=== PATIENT | female | born 1980 | race African-American/Black ===

== ENCOUNTER 2020-07-10 18:45 | Emergency (ER) | payer BC ==
[~2020-07-10] VITALS: Ht 188 cm; Wt 109.0 kg
[2020-07-10] MEDS ORDERED: IBUP-1060 PO (19:27)
[2020-07-10] MEDS ORDERED: OXYC-325 PO (19:28)
[2020-07-10] MEDS ORDERED: KETOROLAC 15 MG/ML VIAL. IVP ONE (19:45)
[2020-07-10] MEDS ORDERED: ONDANSETRON PF 4 MG/2 ML VIAL. IVP ONE (19:45)
[2020-07-10] MEDS ORDERED: IV NORMAL SALINE 1000ML BAG 1,000 ML IV ONE (19:45)
[2020-07-10 20:05] LABS: BASO # 0.1 x10^3/uL (0.0-0.2); BASO % 1 % (0-3); EOS # 0.2 x10^3/uL (0.0-0.7); EOS % 2 % (0-3); HEMATOCRIT 35.4 % (36.0-47.0); HEMOGLOBIN 12.4 g/dL (12.0-15.5); LYMPH # 1.9 x10^3/uL (1.0-4.8); LYMPH % 19 % (24-48); MEAN CORPUSCULAR HEMOGLOBIN 29 pg (25-35); MEAN CORPUSCULAR HGB CONC 35 g/dL (31-37); MEAN CORPUSCULAR VOLUME 81 fL (79-100); MONO # 0.7 x10^3/uL (0.0-1.1); MONO % 6 % (0-9); NEUT # 7.3 x10^3/uL (1.8-7.7); NEUT % 72 % (31-73); PLATELET COUNT 308 x10^3/uL (140-400); RED BLOOD COUNT 4.36 x10^6/uL (3.50-5.40); WHITE BLOOD COUNT 10.2 x10^3/uL (4.0-11.0)
--- NOTE | 2020-07-10 20:09 | PHYS DOC ---
Past Medical History Past Medical History: Other Additional Past Medical Histor: L 5 RUPTURE, RUPTURED OVARIAN CYST Past Surgical History: Cholecystectomy, Other Additional Past Surgical Histo: 7 X BACK SX Smoking Status: Never Smoker Alcohol Use: None Drug Use: None General Adult EDM: Chief Complaint: VAGINAL BLEEDING HPI: HPI: Patient is a 39 year old Female who presents with vaginal discharge and vaginal pain. This began today in the late afternoon. She noticed vaginal discharge was off white and drained "1/4 cup" of fluid. Patient reported at this time she felt extremely hot, dizziness, and general weakness and may have "blacked out" due to the pain. She denies any trauma or falling down. She denies any vaginal trauma, sex, or insertion prior to this time. She has had something like this before a few months ago which was treated at [facility]. They lanced and drained the cyst there. She currently rates the pain 6/10. She is on her 4th day of menses, LMP was 45 days ago, and she denies concerns for . She has had a recent left ovarian tubal ligation on June 12 and is seen by Dr[address] Mckinnon. She took ibuprofen 800mg x2 yesterday, and oxycodone 72hrs ago. She has not taken any pain medications today. She denies any aggravating factors. She reports right- sided headache and head pain which she attributes to her blacking out episode. Review of Systems: Review of Systems: Constitutional: Denies fever or chills Eyes: Denies redness or eye pain HENT: Admits rhinitis. Denies nasal congestion or sore throat Respiratory: Denies cough or shortness of breath Cardiovascular: Denies chest pain or palpitations GI: Admits constipation. Denies abdominal pain, nausea, or vomiting : Admits vaginal discharge. Denies dysuria or hematuria Musculoskeletal: Denies back pain or joint pain Integument: Denies rash or skin lesions Neurologic: Admits headache, syncope, and lower extremity weakness. Denies sensory changes Complete systems were reviewed and found to be within normal limits, except as documented in this note. Family History: Family History: Denies family history of colon cancer. Admits family history of cervical cancer in maternal aunt and cousins. Current Medications: Current Medications Medications (Trade) Dose Ordered Sig/Jemma Start Time Stop Time Status Last Admin Dose Admin Ketorolac Tromethamine (Toradol 15mg Vial) 15 mg 1X ONCE 07/10/20 19:45 07/10/20 19:49 DC Ondansetron HCl (Zofran) 4 mg 1X ONCE 07/10/20 19:45 07/10/20 19:49 DC Sodium Chloride 1,000 ml @ 1,000 mls/hr 1X ONCE 07/10/20 19:45 07/10/20 20:44 Allergies: Allergies: Allergies Coded Allergies Type Severity Reaction Last Updated Verified adhesive tape Allergy Unknown skin irritation 07/10/20 Yes Physical Exam: PE: Constitutional: Well developed, well nourished, moderate acute distress HENT: Normocephalic, atraumatic Eyes: PERRL, EOMI, conjunctiva normal, no discharge, no nystagmus Neck: Normal range of motion, no tenderness, supple Lungs & Thorax: No respiratory distress, equal chest rise and fall Abdomen: Soft, no tenderness Skin: Warm, dry, no erythema, no rash Extremities: No tenderness, ROM intact, no edema Neurologic: Alert and oriented X 3, normal motor function, normal sensory function, no focal deficits noted Psychologic: Affect normal, judgment normal Genitourinary: Rn Lab RN, active bleeding noted in vaginal vault, no CMT. Sessile mass on Left lower vaginal introitus palpated with some drainage and induration, no fluctuance. Current Patient Data: Vital Signs: Vital Signs Date Time Temp Pulse Resp B/P (MAP) Pulse Ox O2 Delivery O2 Flow Rate FiO2 07/10/20 19:12 98.8 85 18 160/95 (116) 99 Room Air 98.8 Course & Med Decision Making: Course & Med Decision Making Patient is a 39yo female who presents with vaginal pain and discharge. Patient was seen and examined. PE showed non-fluctuant cystic mass on the left lower side of vaginal introitus consistent for barthilon gland abscess. Labs revealed BV infection. She was treated with fluids, flagyl 500mg PO, and bactrim 2 tabs. She was given ketorlac 15mg for pain and Zofran 4mg for nausea. Her pain was rated at 6/10 during admittance and has improved. Vitals are stable. UA with signs of infection vs contamination. Patient stable for discharge with outpatient follow-up with PCP/[facility]. Discussed findings and plan with patient, who acknowledges understanding and agreement. Raoul Disclaimer: Raoul Disclaimer: This electronic medical record was generated, in whole or in part, using a voice recognition dictation system. Departure Departure Impression: Primary Impression: Abscess of left Bartholin's gland Additional Impressions: UTI (urinary tract infection) Qualified Codes: N30.01 - Acute cystitis with hematuria Bacterial vaginitis Disposition: DC HOME SELF CARE/HOMELESS Condition: STABLE Referrals: BEN FRANKLIN MD (PCP) Patient Instructions: Bacterial Vaginosis, [id number], Bartholin's Cyst or Abscess, Urinary Tract Infection, [id number] Scripts Metronidazole (FLAGYL) 500 Mg Tablet 500 MG PO BID for Vaginosis for 7 Days, #14 TAB Prov: KAIA FLOYD DO 07/10/20 Sulfamethoxazole/Trimethoprim (BACTRIM DS TABLET) 1 Each Tablet 2 EACH PO BID for 7 Days, #28 TAB Prov: KAIA FLOYD DO 07/10/20 KAIA FLOYD DO Jul 10, 2020 20:09
[2020-07-10 20:16] LABS: CALCIUM 8.7 mg/dL (8.5-10.1); CREATININE 0.9 mg/dL (0.6-1.0); GFR 85.2; POTASSIUM 3.5 mmol/L (3.5-5.1)
[2020-07-10 20:22] LABS: ALBUMIN 3.2 g/dL (3.4-5.0); ALBUMIN/GLOBULIN RATIO 0.7 (1.0-1.7); TOTAL BILIRUBIN 0.2 mg/dL (0.2-1.0); TOTAL PROTEIN 7.7 g/dL (6.4-8.2)
[2020-07-10 21:00] VITALS: BP 124/65
[2020-07-10] MEDS ORDERED: metroNIDAZOLE 500 MG TABLET PO ONE (21:00)
[2020-07-10] MEDS ORDERED: SMZ/TMP 800/160MG TABLET. PO ONE (21:00)
[2020-07-10 21:58] LABS: BILIRUBIN,URINE NEGATIVE (NEG); CLARITY,URINE CLEAR; COLOR,URINE YELLOW; NITRITE,URINE NEGATIVE (NEG); PROTEIN,URINE NEGATIVE (NEG-TRACE); UROBILINOGEN,URINE 0.2 mg/dL (0.2 mg/dL)
[2020-07-10 22:02] LABS: BACTERIA,URINE FEW /HPF (0-FEW); WBC,URINE 20-40 /HPF (0-4)
[2020-07-10] MEDS ORDERED: METR500T PO (22:25)
[2020-07-10] MEDS ORDERED: SULF1TAB24 PO (22:25)
[2020-07-12 19:24] LABS: GC PROBE Positive (Negative)
[2020-07-13] MEDS ORDERED: cefTRIAXone IM 250 MG VIAL IM ONE (14:15)
== END 2020-07-10 22:36 | disposition home or self-care (01) ==
LOC: ER 18:45
DX: N30.01 Acute cystitis with hematuria (principal); N75.1 Abscess of Bartholin's gland; R42 Dizziness and giddiness; N76.0 Acute vaginitis; B96.89 Other specified bacterial agents as the cause of diseases classified elsewhere; Z90.49 Acquired absence of other specified parts of digestive tract; Z88.8 Allergy status to other drugs, medicaments and biological substances
CPT/HCPCS: 80053; 81001; 83735; 85025; 87086; 87491; 87591; 96361; 96374; 96375; 99284; J1885; J2405; J7030; Q0111; J0696

== ENCOUNTER → 2020-07-13 | Emergency (ER) | payer BC ==
[2020-07-10 21:00] VITALS: BP 124/65
[~2020-07-13] MED LIST: IBUP-1060 PO; METR500T PO; OXYC-325 PO; SULF1TAB24 PO; cefTRIAXone IM 250 MG VIAL IM ONE
== END ==
LOC: ER 12:00
DX: R52 Pain, unspecified (principal); Z53.21 Procedure and treatment not carried out due to patient leaving prior to being seen by health care provider
CPT/HCPCS: J0696